=== PATIENT | female | born 1970 ===

== ENCOUNTER 2016-07-28 22:38 | Emergency (ER) | payer OTHER ==
[2016-07-28 23:39] LABS: SPECIFIC GRAVITY 1.015 (1.001-1.030); URINE APPEARANCE HAZY; URINE BILIRUBIN NEGATIVE (NEGATIVE); URINE BLOOD 3+ (NEGATIVE); URINE COLOR YELLOW; URINE GLUCOSE (UA) NEGATIVE (NEGATIVE); URINE LEUKOCYTE ESTERASE NEGATIVE (NEGATIVE); URINE NITRITE NEGATIVE (NEGATIVE); URINE PROTEIN NEGATIVE (NEGATIVE); URINE UROBILINOGEN NORMAL (0-1 mg/dl)
[2016-07-28 23:41] LABS: HCG,QUALITATIVE URINE NEGATIVE
[2016-07-28 23:47] LABS: URINE BACTERIA 0; URINE EPITHELIAL CELLS 0-2 /hpf; URINE RBC 40-50 /hpf
[2016-07-29] MEDS ORDERED: METOCLOPRAMIDE HCL 5 MG/ML 2ML VIAL ONE (01:01)
[2016-07-29] MEDS ORDERED: DIAZEPAM 5 MG/ML SYRINGE 2 ML ONE (01:01)
[2016-07-29] MEDS ORDERED: DIPHENHYDRAMINE HCL 50 MG/1 ML VIAL ONE (01:01)
[2016-07-29] MEDS ORDERED: KETOROLAC TROMETHAMINE 60 MG/2 ML VIAL ONE (01:01)
[2016-07-29] MEDS ORDERED: ACETAMINOPHEN 500 MG TABLET ONE (01:53)
== END 2016-07-29 02:02 | disposition home or self-care (01) ==
LOC: ED 22:38
DX: R51 Headache (principal); M54.9 Dorsalgia, unspecified; R50.9 Fever, unspecified; M41.9 Scoliosis, unspecified; G89.29 Other chronic pain; Z79.899 Other long term (current) drug therapy; Z88.8 Allergy status to other drugs, medicaments and biological substances
CPT/HCPCS: 81025; 81001; 99283 ×2; 96372 ×3; J1200; J2765; J1885; A9270; J3360